=== PATIENT | female | born 2000 | race Caucasian/White ===

== ENCOUNTER 2020-06-15 04:39 | Inpatient (IN) | payer BC ==
[2020-06-15] MEDS ORDERED: methylPREDNISolone Sod Succ/PF 125 MG/2 ML VIAL ONE (05:08)
[2020-06-15] MEDS ORDERED: Magnesium 2 GM/50 ML BAG (IN WATER) ONE (05:08)
[2020-06-15] MEDS ORDERED: Metoclopramide HCl 10 MG/2 ML VIAL ONE (05:08)
[2020-06-15] MEDS ORDERED: HYDROmorphone 0.5 MG/0.5 ML SYRINGE ONE (05:08)
[2020-06-15] MEDS ORDERED: Ketorolac Tromethamine 30 MG/ML VIAL ONE (05:08)
[2020-06-15 05:56] LABS: Hemoglobin 12.7 g/dL (12.0-16.0); Mean Corpuscular HGB CONC 35.9 g/dL (32.0-36.0); Mean Corpuscular Hemoglobin 33.1 pg (25.0-35.0); Mean Corpuscular Volume 92.1 fL (78.0-98.0); Mean Platelet Volume 7.9 fL (7.4-10.4); Platelet Count 217 thou/uL (130-400); Red Blood Cell (RBC) Count 3.85 mill/uL (4.00-5.20); White Blood Cell (WBC) Count 4.7 thou/uL (4.8-10.8)
[2020-06-15 06:01] LABS: BHCG - Serum Negative (NEGATIVE); Pregs Control Background? CLEAR/WHITE (CLR/WHITE); Pregs Control Bar Appear? YES (CONTROL BAR)
[2020-06-15 06:04] LABS: ALT (SGPT) 77 U/L (8-55); AST (SGOT) 40 U/L (5-34); Albumin 3.9 g/dL (3.5-5.0); Alkaline Phosphatase 122 U/L (40-100); Anion Gap 12 mmol/L (10-20); BUN (Urea Nitrogen) 7 mg/dL (7.0-18.7); Bilirubin, Total 0.2 mg/dL (0.2-1.2); Calc. Creatinine Clearance 0 mL/min (70-130); Calcium 9.3 mg/dL (7.8-10.44); Carbon Dioxide 23 mmol/L (22-29); Chloride 106 mmol/L (98-107); Globulin 2.9 g/dL (2.4-3.5); Glucose 112 mg/dL (70-105); Potassium 3.4 mmol/L (3.5-5.1); Protein, Total 6.8 g/dL (6.0-8.3); Sodium 138 mmol/L (136-145)
[2020-06-15 06:16] LABS: Eosinophils 6 % (0-10); Lymphocytes 55 % (28-48); MDiff Complete? YES; Monocytes 11 % (0-4); Neutrophil 22 % (31-61); Reactive Lymphocytes 5 % (0-10)
--- NOTE | 2020-06-15 07:12 | PDOC.FPRHP ---
- History of Present Illness Chief Complaint: Headache History of Present Illness: Headache for 1 week, squeezing headache described as pounding that is worse with sitting up. When she sits up she also has tinnitus, blurry vision, and lightheadedness. Pain has gotten worse with LP. Pain has changed from posterior to all over pain. Never had a headache like this. Endorses bilateral leg weakness. - Allergies/Adverse Reactions Allergies Allergy/AdvReac Type Severity Reaction Status Date / Time amoxicillin [From Augmentin] Allergy Verified 06/15/20 07:03 clavulanic acid Allergy Verified 06/15/20 07:03 [From Augmentin] morphine Allergy Verified 06/15/20 07:03 - Home Medications Medication Instructions Recorded Confirmed Type Adalimumab [Humira(Cf) Pen] 40 mg SC 06/15/20 History Amitriptyline HCl 25 mg PO DAILY 06/15/20 06/15/20 History Cholestyramine (With Sugar) 4 g PO BID 06/15/20 06/15/20 History [Cholestyramine Packet] Fludrocortisone Acetate 0.2 mg PO BID 06/15/20 06/15/20 History Fremanezumab-Vfrm [Ajovy Syringe] 225 mg SC 06/15/20 History Hyoscyamine Sulfate [Levsin Elixir] 0.125 mg PO BID 06/15/20 06/15/20 History Pantoprazole [Protonix] 40 mg PO BID 06/15/20 06/15/20 History Potassium Chloride [K-Dur] 20 meq PO BID 06/15/20 06/15/20 History Pregabalin [Lyrica] 100 mg PO BID 06/15/20 06/15/20 History Propranolol [Inderal] 40 mg PO BID 06/15/20 06/15/20 History - History PMHx: Behcet's, Ehler's Danlos, Crohn's, GI motility disorder, neurogenic bladder, POTS, Mitral valve prolapse PSHx: 3 R knee, 2 L knee surgeries, Appendectomy, cholecystecomy @ [facility] FHx: none Social: denies X 3 - Review of Systems General: reports: fever/chills Eyes: reports: vision changes. denies: eye pain ENT: reports: nasal congestion, rhinorrhea Respiratory: reports: cough. denies: shortness of breath Cardiovascular: denies: chest pain, orthopnea Gastrointestinal: reports: abdominal pain. denies: nausea, vomiting, diarrhea Skin: denies: rashes, lesions Neurological: reports: weakness. denies: numbness, syncope - Vital signs BP: 130/85 HR: 68 RR: 18 Tmax: 97.9 Pox: 98% on RA Wt: 52 kg - Physical Exam Constitutional: NAD, awake, alert and oriented, well developed HEENT: normocephalic and atraumatic, EOMI, conjunctiva clear, no scleral icterus, grossly normal vision, TM's clear and intact, grossly normal hearing, MMM, oropharynx clear, good dention Neck: supple, FROM, trachea midline, no JVD Chest: no-tender to palpation, no lesions Heart: RRR, normal S1/S2 -Heart: mid-systolic click heard at L 5th intercostal space Lungs: CTAB, no respiratory distress, good air movement, no rales/rhonchi, no wheezing, no retractions Abdomen: soft, bowel sounds present, no masses/distention -Abdomen: Mildly tender diffusely Musculoskeletal: normal structure, normal tone, ROM grossly normal Neurological: no focal deficit, CN II-XII intact -Neurological: Lower legs w/ decreased sensation 2/2 previous surgeries, RLE 5/5 strength, LLE 4/5 strength Skin: no rash/lesions Heme/Lymphatic: no unusual bruising or bleeding, no purpura Psychiatric: normal mood and affect, good judgment and insight, intact recent and remote memory FMR H&P: Results - Labs Result Diagrams: 06/15/20 05:25 06/15/20 05:25 Lab results: WBC 4.7 thou/uL (4.8-10.8) L 06/15/20 05:25 Hgb 12.7 g/dL (12.0-16.0) 06/15/20 05:25 Hct 35.4 % (36.0-47.0) L 06/15/20 05:25 MCV 92.1 fL (78.0-98.0) 06/15/20 05:25 Plt Count 217 thou/uL (130-400) 06/15/20 05:25 Sodium 138 mmol/L (136-145) 06/15/20 05:25 Potassium 3.4 mmol/L (3.5-5.1) L 06/15/20 05:25 Chloride 106 mmol/L (98-107) 06/15/20 05:25 Carbon Dioxide 23 mmol/L (22-29) 06/15/20 05:25 BUN 7 mg/dL (7.0-18.7) 06/15/20 05:25 Creatinine 0.61 mg/dL (0.6-1.1) 06/15/20 05:25 Glucose 112 mg/dL (70-105) H 06/15/20 05:25 Calcium 9.3 mg/dL (7.8-10.44) 06/15/20 05:25 Total Bilirubin 0.2 mg/dL (0.2-1.2) 06/15/20 05:25 AST 40 U/L (5-34) H 06/15/20 05:25 ALT 77 U/L (8-55) H 06/15/20 05:25 Alkaline Phosphatase 122 U/L (40-100) H 06/15/20 05:25 Serum Total Protein 6.8 g/dL (6.0-8.3) 06/15/20 05:25 Albumin 3.9 g/dL (3.5-5.0) 06/15/20 05:25 - Radiology Interpretation CT scan - head Status: image reviewed by me, report reviewed by me Additional comment: No acute hemorrhage, no acute abnormality, will need f/u imaging FMR H&P: A/P - Plan Intractable Headache - ddx includes spinal headache (LP 06/13) vs migraine vs tension vs aneurysm vs parathyroid hyperplasia/adenoma - CTH is unremarkable for acute processes but will need further imaging - MARTINI protocol completed steps 1-4 - Start 1L LR bolus - IV Reglan and Benadryl Q1h UTI - GBS grew on Urine culture from 06/12 - Macrobid X 7 d Hypokalemia - Replete, check Mg Transaminitis - Patient reports that this normally occurs with flares - Trend Crohn's disease - Home medications 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, home medications POTS disease - MD aware, monitor VS Dysautonomia - Could be playing role in headaches - Continue to monitor Migraine headaches - On prophylaxis, this headache feels different than typical migraines Hx of headaches - Tension MARTINI with history of occipital nerve injections Elevated BP - Continue to monitor DVT PPX: Lovenox 30 mg QD-patient with hx of surgery in 06/29, decreased mobility with MARTINI, and Autoimmune disease affecting vessels GI ppx: home pantoprazole Diet: regular PCP: CC OOT Code: full Dispo: Admit med obs, expected LOS < 48 hrs FMR H&P: Upper Level - Plan Date/Time: 06/15/20 0709 I, [Leeann Christie], have evaluated this patient and agree with findings/plan as outlined by merchandising intern resident. Pertinent changes/additions are listed here. 19 yo F with Shanique Danlos, Behcets & Crohns & POTS syndrome & chronic migraines here for worsening of migraine. Was seen in the ER two days ago for headache where she underwent LP and medication with mild improvement of MARTINI. Over the past day her headache worsened and so she came back to the ER. Was given toradol, dilaudid, MgS, solumedrol, reglan & valproic acid with no relief so is admitted for intractable headache. Of note, she has been followed by [facility] with a diagnosis of a 10mm suprasellar seen on MRI in Jun 2019. She has a history of migraines on which she is on propranolol & amitriptyline for but this one feels different and worse. MARTINI is worse with sitting up, improved with laying down. Associated nausea but no vision changes. On exam, CN II-XII grossly intact with 3/5 motor strength in lower extremities which patient reports is her baseline. Reports mildly decreased left sensation in LUE but 5/5 strength. Non ill appearing and in mild distress from headache. CT head showed possible aneurysm and suprasellar mass. A/P: # Intractable Headache -2/2 aneurysm vs. suprasellar mass vs. post spinal headache vs. migraine exacerbation -Will get f/u MRI to evaluate for intracranial pathology that could explain persistent headache. Concern for aneurysm or enlarge of suprasellar mass. No significant FND on exam. If imaging neg, will consult anesthesia as headache seems more related to LP procedure, patient may need blood patch. Fluids, headache medications in the meantime. Low suspicion for meningitis, LP NGTD, will continue to follow. #UTI- on last ER hospitalization, will treat with abx #Hypokalemia-replace, check Mg #Transaminitis- likely from autoimmune disease. Trend. #Dysautonomia-home meds #Crohn's-home meds #Behcet's-home meds Please see merchandising intern note for rest of details Dvt ppx: lovenox 30 Gi ppx: home PPI Code: Full PCP: [facility] LOS: <[address] Delacruz Addendum - Attending - Attending Attestation Date/Time: 06/15/20 1720 I personally evaluated the patient and discussed the management with Dr. Garcia I agree with the History, Examination, Assessment and Plan documented above with any addition or exceptions noted below - 19 yo female with h/o Behcet's, Crohn's, Ehler Danlos, pituitary adenoma, and POTS syndrome presents c/o MARTINI x 2 days. Initially seen in ER in 06/11 with c/o fever and body aches. Evaluated and d/c'd home with abx for UTI. Returned on 06/13 with additional c/o MARTINI, bitemporal. LP performed which was unremarkable. Blood and CSF cultures negative. D/c'd home but returned today with persistent MARTINI now global that worsens with sitting/standing and improves when supine. Denies N/V. PMH/PSH/Meds/SH reviewed and agree with resident;s documentation. Afebrile VSS. Exam repeated by me and agree with resident's findings. 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 Continue IVF an dwill have anesthesia evaluate patient for possible spinal component.
[2020-06-15] MEDS ORDERED: VALPROATE SODIUM IVPB SCH (07:15)
[2020-06-15] MEDS ORDERED: SODIUM CHLORIDE 0.9% IVPB SCH (07:15)
--- NOTE | 2020-06-15 07:18 | CT ---
PRELIMINARY REPORT/[facility]/EMERGENCY AFTER HOURS PROCEDURE EXAM: CT Head Without Intravenous Contrast. CLINICAL HISTORY: Headaches, recent LP TECHNIQUE: Axial computed tomography images of the head/brain without intravenous contrast. COMPARISON: None provided. FINDINGS: BRAIN: No intracranial hemorrhage. Within the suprasellar region is rounded hyperdensity measuring 8 mm. Dif ferential should include mass versus aneurysm. Followup unenhanced and enhanced MRI is advised. VENTRICLES: No hydrocephalus. ORBITS: The orbits are unremarkable. SINUSES AND MASTOIDS: The paranasal sinuses and mastoid air cells are clear. SOFT TISSUES: No significant facial or scalp soft tissue swelling evident. No radiopaque foreign body is seen. BONES: No acute skull fracture. IMPRESSION: 8 mm rounded hyperdensity within suprasellar region. Followup unenhanced and enhanced MRI on a noneme rgent basis is advised. ELECTRONICALLY SIGNED BY: Leeanna Monge MD Jun 15, 2020 6:14:35 AM SENIOR PROCUREMENT SPECIALIST This report is intended for review by the ordering physician only, in accordance of law. If you recei ve this report in error, please call [facility] at [phone]. FINAL REPORT Final report by Dr. Roe Emergency after-hours study CT BRAIN NONCONTRAST: DATE: 06/15/2020 5:39 AM HISTORY: 19-year-old female with headache FINDINGS: There is no evidence of acute intra-axial or extra-axial hemorrhage. There is no midline shift or any other mass effect. There is no extra-axial fluid collection. There is no evidence of obstructive hydrocephalus. Calvarium is intact. There is an approximately 10 x 9 mm round hyperdense mass in the suprasellar cistern. Visualized upper portions of frontal, ethmoid, and sphenoid sinuses, and bilateral tympanomastoid cavities, are grossly clear. Agree with preliminary report by [facility]. IMPRESSION: 1) No acute intracranial findings. 2) 10 mm suprasellar mass. Differential diagnosis is pituitary macroadenoma versus craniopharyngioma. Aneurysm is less likely but possible. Recommend further evaluation with MRI of the brain and sella with and without contrast. Transcribed Date/Time: 06/15/2020 7:32 AM
[2020-06-15] MEDS ORDERED: Calcium Carbonate 500 MG ChewTAB PO PRN (07:52)
[2020-06-15] MEDS ORDERED: Acetaminophen 325 MG TAB PO PRN (07:52)
[2020-06-15] MEDS ORDERED: Acetaminophen 650 MG Suppository PR PRN (07:52)
[2020-06-15] MEDS ORDERED: Ondansetron ODT 4 MG TAB PO PRN (07:52)
[2020-06-15] MEDS ORDERED: Ondansetron PF 4 MG/2 ML Vial IVP PRN (07:52)
[2020-06-15] MEDS ORDERED: Lactated Ringer's 1,000 ML IV SCH (08:15)
[2020-06-15] MEDS ORDERED: Enoxaparin Sodium 40 MG/0.4 ML SYRINGE SC SCH (09:00)
[2020-06-15] MEDS: Enoxaparin Sodium 30 MG/0.3 ML SYRINGE SC SCH (09:06)
[2020-06-15 09:29] VITALS: BMI 16.9
[2020-06-15] MEDS ORDERED: Potassium Chloride 20 MEQ TAB PO SCH (09:45)
[2020-06-15] MEDS ORDERED: diphenhydrAMINE 50 MG/ML VIAL IVP SCH (10:15)
[2020-06-15] MEDS: diphenhydrAMINE 50 MG/ML VIAL IVP SCH ×3 (11:49→13:13)
[2020-06-15] MEDS: Metoclopramide HCl 10 MG/2 ML VIAL IVP SCH ×3 (11:50→13:13)
--- NOTE | 2020-06-15 13:49 | MRI ---
MRI OF BRAIN WITH AND WITHOUT CONTRAST: 06/15/20 INDICATIONS: Follow-up suprasellar mass seen on CT of 06/15/20. Correlation is made to that study. FINDINGS: There is a mass involving the sella turcica with suprasellar extension. This mass is isointense on T1 and T2 images. It exhibits diffuse enhancement on postcontrast images. In the suprasellar region it abuts the optic chiasm. On sagittal images, it measures 1.1 cm craniocaudal x 1.1 cm AP dimension. In the coronal plane, it measures approximately 1.2 cm width. No involvement of the cavernous sinus is seen. No other abnormal enhancement identified. Ventricles have normal size and position. There is no evide nce of white matter abnormality. There is no evidence of restricted diffusion. The intracranial inter nal carotid arteries and cerebral arteries demonstrate expected flow voids. Mild mucosal edema in the floor of the maxillary sinuses. There is also mild mucosal edema in the ethmoid air cells. Mastoids appear clear. IMPRESSION: Sella turcica mass with suprasellar extension which abuts the optic chiasm. Measurements are given ab ove. This mass is homogeneous with isointensity on noncontrast images and exhibits diffuse enhanceme nt. 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 POS: AH
[2020-06-15] MEDS ORDERED: Magnevist 469MG/ML 20 ML VIAL ONE (14:19)
[2020-06-15] MEDS ORDERED: FREMANEZUMAB VFRM 225 MG/1.5 ML SC SCH (20:15)
[2020-06-15] MEDS ORDERED: ADALIMUMAB 40 MG/0.4 ML SC SCH (20:15)
[2020-06-15] MEDS ORDERED: Fludrocortisone Acetate 0.1 MG TAB PO SCH (21:00)
[2020-06-15] MEDS: Nitrofurantoin Monohyd/M-Cryst 100 MG CAP PO SCH (22:00)
[2020-06-15] MEDS ORDERED: Cholestyramine/Aspartame 4 gm Packet PO SCH (22:00)
[2020-06-15] MEDS: Potassium Chloride 20 MEQ TAB PO SCH (22:00)
[2020-06-15] MEDS: Pregabalin 50 MG CAP PO SCH (22:00)
[2020-06-15] MEDS: Propranolol 40 MG TAB PO SCH (22:00)
[2020-06-15] MEDS: Ketorolac Tromethamine 30 MG/ML VIAL IVP PRN (22:21)
[2020-06-16] MEDS: Ketorolac Tromethamine 30 MG/ML VIAL IVP PRN ×3 (05:32→18:12)
[2020-06-16 05:47] LABS: #Eosinphils 0.1 thou/uL (0.0-0.7); #Lymphocytes 3.4 thou/uL (1.20-3.40); #Monocytes 0.5 thou/uL (0.11-0.59); #Neutrophils 2.9 thou/uL (1.40-6.50); %Basophils 0.6 % (0.0-1.0); %Eosinophils 1.6 % (0.0-10.0); %Lymphocytes 49.9 % (28.0-48.0); %Monocytes 6.6 % (0.0-4.0); %Neutrophils 41.3 % (31.0-61.0); Hemoglobin 11.7 g/dL (12.0-16.0); Mean Corpuscular HGB CONC 35.3 g/dL (32.0-36.0); Mean Corpuscular Hemoglobin 32.6 pg (25.0-35.0); Mean Corpuscular Volume 92.2 fL (78.0-98.0); Mean Platelet Volume 8.3 fL (7.4-10.4); Platelet Count 217 thou/uL (130-400); Red Blood Cell (RBC) Count 3.58 mill/uL (4.00-5.20); White Blood Cell (WBC) Count 6.9 thou/uL (4.8-10.8)
[2020-06-16 06:13] LABS: ALT (SGPT) 53 U/L (8-55); AST (SGOT) 18 U/L (5-34); Albumin 3.7 g/dL (3.5-5.0); Alkaline Phosphatase 104 U/L (40-100); Anion Gap 11 mmol/L (10-20); BUN (Urea Nitrogen) 14 mg/dL (7.0-18.7); Bilirubin, Total 0.2 mg/dL (0.2-1.2); Calc. Creatinine Clearance 115 mL/min (70-130); Calcium 8.8 mg/dL (7.8-10.44); Carbon Dioxide 23 mmol/L (22-29); Chloride 109 mmol/L (98-107); Globulin 2.6 g/dL (2.4-3.5); Glucose 91 mg/dL (70-105); Potassium 3.6 mmol/L (3.5-5.1); Protein, Total 6.3 g/dL (6.0-8.3); Sodium 139 mmol/L (136-145)
--- NOTE | 2020-06-16 06:33 | PDOC.FM ---
- Subjective Subjective: Patient with worsening MARTINI this AM. Reports blood patch overnight worked for a few hours then pain returns. Pain is now worse than before the blood patch. The pain is still position dependent, squeezing in nature, and throughout her head. She reports this is not like her typical migraines. - Objective Vital Signs & Weight: Vital Signs (12 hours) Temp Pulse Resp BP Pulse Ox 06/16/20 03:00 98.4 F 80 18 116/63 98 06/15/20 23:00 98.4 F 80 18 121/81 100 06/15/20 19:53 97.9 F 95 18 116/74 100 Weight Weight 52 kg I&O: 06/14/20 06/15/20 06/16/20 06:59 06:59 06:59 Intake Total 1300 Balance 1300 Result Diagrams: 06/16/20 05:11 06/16/20 05:11 Phys Exam - Physical Examination Constitutional: NAD Lying in bed Respiratory: no wheezing, no rales, no rhonchi Cardiovascular: RRR, no significant murmur, no rub Neurological: non-focal, moves all 4 limbs Exam unchanged from yesterday Dx/Plan - Plan Plan: Intractable Headache - ddx includes spinal headache (LP 06/13) vs migraine vs tension vs aneurysm vs parathyroid hyperplasia/adenoma - CTH is unremarkable for acute processes but will need further imaging - MARTINI protocol completed steps 1-4 - Blood patch completed 06/15 - one time dilaudid dose, flexeril dose - Consider DHT for status migranosus - Consider neuro consult 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 POTS disease - MD aware, monitor VS Dysautonomia - Could be playing role in headaches - Continue to monitor Migraine headaches - On prophylaxis, this headache feels different than typical migraines Hx of headaches - Tension MARTINI with history of occipital nerve injections Elevated BP - Continue to monitor Hypokalemia - Resolved DVT PPX: Lovenox 30 mg QD-patient with hx of surgery in 06/29, decreased mobility with MARTINI, and Autoimmune disease affecting vessels GI ppx: home pantoprazole Diet: regular PCP: CC OOT Code: full Dispo: Admit med obs, expected LOS < 48 hrs Addendum - Attending - Attending Attestation Date/Time: 06/16/201926 I personally evaluated the patient and discussed the management with Dr. Garcia I agree with the History, Examination, Assessment and Plan documented above with any addition or exceptions noted below - Patient reports MARTINI returned and is severe. Afebrile VSS. A/P: 1) Intractable MARTINI- had relief for few hours after blood patch. will discuss with neurology.
[2020-06-16] MEDS ORDERED: diphenhydrAMINE 50 MG CAP PO PRN (06:55)
[2020-06-16] MEDS: Pregabalin 50 MG CAP PO SCH ×2 (08:24→21:33)
[2020-06-16] MEDS: Nitrofurantoin Monohyd/M-Cryst 100 MG CAP PO SCH ×2 (08:24→21:34)
[2020-06-16] MEDS: Potassium Chloride 20 MEQ TAB PO SCH ×2 (08:25→21:33)
[2020-06-16] MEDS: Propranolol 40 MG TAB PO SCH ×2 (08:26→21:32)
[2020-06-16] MEDS: Enoxaparin Sodium 30 MG/0.3 ML SYRINGE SC SCH (08:30)
[2020-06-16] MEDS ORDERED: HYDROmorphone 0.5 MG/0.5 ML SYRINGE SLOW IVP SCH (09:00)
[2020-06-16] MEDS ORDERED: Amitriptyline HCl 25 MG TAB PO SCH (09:00)
[2020-06-16] MEDS ORDERED: Cyclobenzaprine 10 MG TAB PO SCH (10:00)
[2020-06-16] MEDS: Lactated Ringer's 1,000 ML IV SCH ×2 (11:43→21:35)
[2020-06-16] MEDS ORDERED: Caffeine Citrated 60 MG/3 ML (ORALLY) PO SCH (16:15)
[2020-06-16] MEDS ORDERED: Sodium Chloride 0.9% 500 ML IV SCH (16:15)
[2020-06-16] MEDS: Fludrocortisone Acetate 0.1 MG TAB PO SCH ×3 (17:13→21:32)
[2020-06-16] MEDS ORDERED: Fioricet 325/50/40 mg Tablet PO SCH (21:00)
[2020-06-16] MEDS: Amitriptyline HCl 25 MG TAB PO SCH (21:35)
[2020-06-17] MEDS: Lactated Ringer's 1,000 ML IV SCH ×3 (03:20→23:06)
[2020-06-17] MEDS: Ketorolac Tromethamine 30 MG/ML VIAL IVP PRN ×4 (03:20→23:04)
[2020-06-17 03:58] LABS: ALT (SGPT) 74 U/L (8-55); AST (SGOT) 33 U/L (5-34); Albumin 3.8 g/dL (3.5-5.0); Alkaline Phosphatase 125 U/L (40-100); Anion Gap 12 mmol/L (10-20); BUN (Urea Nitrogen) 8 mg/dL (7.0-18.7); Bilirubin, Total 0.2 mg/dL (0.2-1.2); Calc. Creatinine Clearance 108 mL/min (70-130); Calcium 9.2 mg/dL (7.8-10.44); Carbon Dioxide 25 mmol/L (22-29); Chloride 104 mmol/L (98-107); Globulin 2.8 g/dL (2.4-3.5); Glucose 88 mg/dL (70-105); Potassium 3.7 mmol/L (3.5-5.1); Protein, Total 6.6 g/dL (6.0-8.3); Sodium 137 mmol/L (136-145)
--- NOTE | 2020-06-17 04:19 | CON ---
DATE OF CONSULTATION: 06/16/2020 CONSULTING PHYSICIAN: Hospitalist Service. IMPRESSION: Persistent spinal leak headache. PLAN: Recall Anesthesia to repeat a blood patch. HISTORY OF PRESENT ILLNESS: Gabbi is a 19-year-old young woman, who came into the emergency room with fever and low-grade headache about four days ago. She had a lumbar puncture done. Following the LP, she developed a new type of headache that was postural. She was admitted and given medications and fluids. She failed to improve. She had a blood patch yesterday. She reports that the headache has transiently gone for a few hours. The pain started recurring despite the lack of activity. The pain is markedly worse when she sits up. There was associated tinnitus and muffled hearing, neck pain and shoulder pain when she sits up. There is some slight nausea. She had an MRI of the brain done with some pituitary abnormalities noted, but nothing otherwise significant. She is not having any fever. She has a history of migraine, but reports this is totally different than her usual migraine headaches. PAST HISTORY: Migraines. ALLERGIES: AMOXICILLIN, MORPHINE, CLAVULANIC ACID. SOCIAL HISTORY: No tobacco or alcohol. FAMILY HISTORY: Noncontributory. MEDICATION LIST: Reviewed. REVIEW OF SYSTEMS: Ten-system review of systems is otherwise negative. PHYSICAL EXAMINATION: GENERAL: She is a healthy-appearing young woman and in no overt distress. VITAL SIGNS: Have been stable. She is afebrile. HEENT: Pupils are equal and reactive. Conjunctivae are clear. NECK: Supple. No lymphadenopathy. SKIN: Clear. ABDOMEN: Soft and nontender. NEUROLOGIC: She is alert and appropriate. Her speech is fluent and clear. She has no focal deficits or abnormal movements. SUMMARY: Unfortunate young woman with a persistent postural headache with peripheral symptoms consistent with low-pressure headache. There is not much I can offer her. I would recall Anesthesia to repeat blood patch. Job ID: [id number]
[2020-06-17 04:35] LABS: Eosinophils 3 % (0-10); Hemoglobin 12.4 g/dL (12.0-16.0); Lymphocytes 68 % (28-48); MDiff Complete? YES; Mean Corpuscular HGB CONC 35.6 g/dL (32.0-36.0); Mean Corpuscular Hemoglobin 33.1 pg (25.0-35.0); Mean Corpuscular Volume 93.1 fL (78.0-98.0); Mean Platelet Volume 7.6 fL (7.4-10.4); Monocytes 4 % (0-4); Neutrophil 24 % (31-61); Platelet Count 235 thou/uL (130-400); Reactive Lymphocytes 1 % (0-10); Red Blood Cell (RBC) Count 3.74 mill/uL (4.00-5.20); White Blood Cell (WBC) Count 4.7 thou/uL (4.8-10.8)
[2020-06-17] MEDS ORDERED: Fioricet 325/50/40 mg Tablet PO SCH ×3 (05:00→17:00)
[2020-06-17] MEDS: Pregabalin 50 MG CAP PO SCH ×2 (08:12→20:15)
[2020-06-17] MEDS: Propranolol 40 MG TAB PO SCH ×2 (08:13→20:15)
[2020-06-17] MEDS: Potassium Chloride 20 MEQ TAB PO SCH ×2 (08:13→20:14)
[2020-06-17] MEDS: Nitrofurantoin Monohyd/M-Cryst 100 MG CAP PO SCH ×2 (08:13→20:14)
[2020-06-17] MEDS: Enoxaparin Sodium 30 MG/0.3 ML SYRINGE SC SCH (08:14)
--- NOTE | 2020-06-17 08:20 | PDOC.FM ---
- Subjective Subjective: Patient reports persistent MARTINI, 4/10 pain lying down, worse with position changes, Fioricet makes her tired but does not seem to affect pain. - Objective Vital Signs & Weight: Vital Signs (12 hours) Temp Pulse Resp BP BP Pulse Ox 06/17/20 08:17 97.8 F 66 16 104/67 98 06/17/20 03:00 97.9 F 72 18 124/81 97 06/16/20 23:00 98.5 F 63 18 116/74 95 Weight Weight 52 kg I&O: 06/16/20 06/17/20 06/18/20 06:59 06:59 06:59 Intake Total 1600 5371.25 Balance 1600 5371.25 Result Diagrams: 06/20/20 05:50 06/20/20 05:50 Phys Exam - Physical Examination Constitutional: NAD Respiratory: no wheezing, no rales, no rhonchi Cardiovascular: RRR, no rub mid systolic click Gastrointestinal: soft, no distention, positive bowel sounds Dx/Plan - Plan Plan: Intractable Headache - ddx includes spinal headache (LP 06/13) vs migraine vs tension vs aneurysm vs parathyroid hyperplasia/adenoma - CTH is unremarkable for acute processes, MRI shows stable pituitary adenoma - MARTINI protocol completed steps 1-4 - Blood patch completed 06/15 - Consider DHT for status migranosus - Neuro consulted - Anesthesia consulted - Does not want to repeat blood patch at this time, last option is ketamine infusion - Fioricet X24 hrs only 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 POTS disease - MD aware, monitor VS Dysautonomia - Could be playing role in headaches - Continue to monitor Migraine headaches - On prophylaxis, this headache feels different than typical migraines Hx of headaches - Tension MARTINI with history of occipital nerve injections Elevated BP - Continue to monitor Hypokalemia - Resolved DVT PPX: Lovenox 30 mg QD-patient with hx of surgery in 06/29, decreased mobility with MARTINI, and Autoimmune disease affecting vessels GI ppx: home pantoprazole Diet: regular PCP: [facility] OOT Code: full Dispo: Admit med obs, expected LOS < 48 hrs Addendum - Attending - Attending Attestation Date/Time: 06/24/202106 I personally evaluated the patient and discussed the management with Dr. Garcia on 06/17/20 I agree with the History, Examination, Assessment and Plan documented above with any addition or exceptions noted below - Patient still with MARTINI. Will re-discuss with anesthesia for repeat blood patch versus other treatment.
[2020-06-17] MEDS: Fludrocortisone Acetate 0.1 MG TAB PO SCH ×2 (10:27→21:18)
[2020-06-17] MEDS: Acetaminophen 500 MG TAB PO SCH ×2 (14:58→20:14)
[2020-06-17] MEDS ORDERED: Naloxone HCl 0.4 mg/ml Vial IV PRN (18:57)
[2020-06-17] MEDS ORDERED: HYDROmorphone 0.5 MG/0.5 ML SYRINGE SLOW IVP SCH ×2 (19:00)
[2020-06-17] MEDS: Amitriptyline HCl 25 MG TAB PO SCH (20:15)
[2020-06-17] MEDS ORDERED: HYDROmorphone 2 MG TAB PO PRN (22:37)
[2020-06-17] MEDS ORDERED: Promethazine HCl 25 MG in Sodium Chloride 0.9% 50 ML IVPB PRN (23:02)
[2020-06-18] MEDS: Fentanyl 100 MCG/2 ML VIAL SLOW IVP PRN ×3 (00:42→12:20)
[2020-06-18] MEDS: methylPREDNISolone Sod Succ 40 MG VIAL IVP SCH ×2 (00:44→09:28)
[2020-06-18] MEDS ORDERED: Magnesium 2 GM/50 ML 2 GM in Premix Bag 1 BAG IVPB SCH (01:00)
[2020-06-18] MEDS: Acetaminophen 325 MG TAB PO SCH ×3 (03:17→17:11)
[2020-06-18 06:46] LABS: #Lymphocytes 1.2 thou/uL (1.20-3.40); #Monocytes 0.1 thou/uL (0.11-0.59); #Neutrophils 3.6 thou/uL (1.40-6.50); %Basophils 0.7 % (0.0-1.0); %Eosinophils 0.6 % (0.0-10.0); %Lymphocytes 23.9 % (28.0-48.0); %Monocytes 2.4 % (0.0-4.0); %Neutrophils 72.4 % (31.0-61.0); Hemoglobin 12.6 g/dL (12.0-16.0); Mean Corpuscular HGB CONC 35.2 g/dL (32.0-36.0); Mean Corpuscular Hemoglobin 32.4 pg (25.0-35.0); Mean Platelet Volume 7.7 fL (7.4-10.4); Platelet Count 272 thou/uL (130-400)
[2020-06-18 06:58] LABS: ALT (SGPT) 55 U/L (8-55); AST (SGOT) 25 U/L (5-34); Alkaline Phosphatase 117 U/L (40-100); Anion Gap 11 mmol/L (10-20); BUN (Urea Nitrogen) 9 mg/dL (7.0-18.7); Bilirubin, Total 0.3 mg/dL (0.2-1.2); Calc. Creatinine Clearance 107 mL/min (70-130); Calcium 9.3 mg/dL (7.8-10.44); Carbon Dioxide 27 mmol/L (22-29); Chloride 105 mmol/L (98-107); Globulin 2.8 g/dL (2.4-3.5); Glucose 111 mg/dL (70-105); Potassium 3.8 mmol/L (3.5-5.1); Protein, Total 6.8 g/dL (6.0-8.3); Sodium 139 mmol/L (136-145)
--- NOTE | 2020-06-18 08:53 | PDOC.FM ---
- Subjective Subjective: Patient reports persistent MARTINI with nausea. Reports that she denies blood patch yesterday because from her understanding, it would only be a temporary solution. This morning, she reports she is interested in blood patch even if it were a temporary solution. - Objective Vital Signs & Weight: Vital Signs (12 hours) Temp Pulse Resp BP BP Pulse Ox 06/18/20 07:41 97.7 F 72 16 115/61 96 06/18/20 04:45 97.4 F L 81 16 105/62 97 06/18/20 00:08 80 18 115/75 100 06/17/20 23:28 98.2 F 120 H 22 H 135/96 H 99 Weight Admit Weight 52 kg Weight 52 kg I&O: 06/17/20 06/18/20 06/19/20 06:59 06:59 06:59 Intake Total 5371.25 4432 Balance 5371.25 4432 Result Diagrams: 06/18/20 06:20 06/18/20 06:20 Phys Exam - Physical Examination Constitutional: NAD Respiratory: no wheezing, clear to auscultation bilateral Cardiovascular: RRR, no rub midsystolic click Neurological: non-focal Unchanged from prior exam Dx/Plan - Plan Plan: Intractable Headache - ddx includes spinal headache (LP 06/13) vs migraine vs tension vs aneurysm vs parathyroid hyperplasia/adenoma - CTH is unremarkable for acute processes, MRI shows stable pituitary adenoma - MARTINI protocol completed steps 1-4 - Blood patch completed 06/15 - Neuro consulted - Anesthesia consulted - Patient denied blood patch yesterday, discussed today, open to idea even for limited relief - Fioricet X24 hrs only, completed 06/18 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 POTS disease - MD aware, monitor VS Dysautonomia - Could be playing role in headaches - Continue to monitor Migraine headaches - On prophylaxis, this headache feels different than typical migraines Hx of headaches - Tension MARTINI with history of occipital nerve injections Elevated BP - Continue to monitor Hypokalemia - Resolved DVT PPX: Lovenox 30 mg QD-patient with hx of surgery in 06/29, decreased mobility with MARTINI, and Autoimmune disease affecting vessels GI ppx: home pantoprazole Diet: regular PCP: [facility] OOT Code: full Dispo: Admit med obs, expected LOS < 48 hrs Addendum - Attending - Attending Attestation Date/Time: 06/18/20 1255 I personally evaluated the patient and discussed the management with Dr. Garcia. I agree with the History, Examination, Assessment and Plan documented above with any addition or exceptions noted below.
[2020-06-18] MEDS: Propranolol 40 MG TAB PO SCH ×2 (09:24→20:52)
[2020-06-18] MEDS: Pregabalin 50 MG CAP PO SCH ×2 (09:24→20:49)
[2020-06-18] MEDS: Potassium Chloride 20 MEQ TAB PO SCH ×2 (09:25→20:52)
[2020-06-18] MEDS: Fludrocortisone Acetate 0.1 MG TAB PO SCH ×2 (09:25→20:54)
[2020-06-18] MEDS: Nitrofurantoin Monohyd/M-Cryst 100 MG CAP PO SCH ×2 (09:25→20:54)
[2020-06-18] MEDS: Enoxaparin Sodium 40 MG/0.4 ML SYRINGE SC SCH (09:26)
[2020-06-18] MEDS: Lactated Ringer's 1,000 ML IV SCH (12:21)
[2020-06-18] MEDS: Dextrose 5%-Lactated Ringers 1,000 ML IV SCH ×2 (16:03→23:15)
[2020-06-18] MEDS: Amitriptyline HCl 25 MG TAB PO SCH (20:52)
[2020-06-18] MEDS ORDERED: Ibuprofen 800 MG TAB PO SCH (22:00)
[2020-06-18] MEDS ORDERED: Ketorolac Tromethamine 30 MG/ML VIAL IVP SCH ×2 (23:45→23:59)
[2020-06-18] MEDS ORDERED: Lactated Ringer's 1,000 ML IV SCH (23:59)
[2020-06-19] MEDS ORDERED: Magnesium 2 GM/50 ML 2 GM in Premix Bag 1 BAG IVPB SCH (00:15)
[2020-06-19] MEDS ORDERED: methylPREDNISolone Sod Succ 40 MG VIAL IVP SCH (00:15)
[2020-06-19] MEDS: Acetaminophen 325 MG TAB PO SCH ×3 (02:05→17:52)
[2020-06-19] MEDS ORDERED: Ketorolac Tromethamine 10 MG TAB PO SCH (03:15)
[2020-06-19] MEDS: Dextrose 5%-Lactated Ringers 1,000 ML IV SCH ×3 (03:16→14:35)
[2020-06-19] MEDS ORDERED: Fioricet 325/50/40 mg Tablet PO SCH (04:30)
[2020-06-19 06:06] LABS: #Basophils 0.1 thou/uL (0.0-0.2); #Lymphocytes 1.6 thou/uL (1.20-3.40); #Monocytes 0.2 thou/uL (0.11-0.59); #Neutrophils 5.7 thou/uL (1.40-6.50); %Basophils 0.7 % (0.0-1.0); %Eosinophils 0.2 % (0.0-10.0); %Lymphocytes 21.5 % (28.0-48.0); %Monocytes 2.1 % (0.0-4.0); %Neutrophils 75.4 % (31.0-61.0); Hemoglobin 11.6 g/dL (12.0-16.0); Mean Corpuscular HGB CONC 35.2 g/dL (32.0-36.0); Mean Corpuscular Volume 93.9 fL (78.0-98.0); Mean Platelet Volume 7.7 fL (7.4-10.4); Platelet Count 252 thou/uL (130-400); Red Blood Cell (RBC) Count 3.52 mill/uL (4.00-5.20); White Blood Cell (WBC) Count 7.5 thou/uL (4.8-10.8)
[2020-06-19 06:33] LABS: ALT (SGPT) 45 U/L (8-55); AST (SGOT) 24 U/L (5-34); Albumin 3.6 g/dL (3.5-5.0); Alkaline Phosphatase 101 U/L (40-100); Anion Gap 12 mmol/L (10-20); BUN (Urea Nitrogen) 7 mg/dL (7.0-18.7); Bilirubin, Total Less than 0.2 mg/dL (0.2-1.2); Calc. Creatinine Clearance 113 mL/min (70-130); Calcium 8.1 mg/dL (7.8-10.44); Carbon Dioxide 24 mmol/L (22-29); Chloride 108 mmol/L (98-107); Globulin 2.4 g/dL (2.4-3.5); Glucose 161 mg/dL (70-105); Potassium 3.5 mmol/L (3.5-5.1); Sodium 140 mmol/L (136-145)
--- NOTE | 2020-06-19 08:03 | PDOC.FM ---
- Subjective Subjective: Patient had increasing headaches overnight. This morning reports that they are back to 4-5/10. She reports double vision and hearing changes that have been worsening-they used ot only occur when sitting but now happen at rest. Patient received Mg, Solumedrol, fioricet overnight. - Objective Vital Signs & Weight: Vital Signs (12 hours) Temp Pulse Resp BP Pulse Ox 06/19/20 07:00 98.1 F 78 14 105/58 L 97 06/19/20 04:00 98.4 F 86 20 116/71 97 06/19/20 00:00 98.5 F 89 20 106/56 L 98 Weight Admit Weight 52 kg Weight 52 kg I&O: 06/18/20 06/19/20 06/20/20 06:59 06:59 06:59 Intake Total 4432 2222 Output Total 1 Balance 4432 2221 Result Diagrams: 06/19/20 05:33 06/19/20 05:33 Phys Exam - Physical Examination Constitutional: NAD Respiratory: no wheezing, no rales, no rhonchi, clear to auscultation bilateral Cardiovascular: no significant murmur, no rub systolic click Neurological: moves all 4 limbs perrl UE strength 5/5, LE strength 4/5 bilaterally Dx/Plan - Plan Plan: Intractable Headache - ddx includes spinal headache (LP 06/13) vs migraine vs tension vs aneurysm vs parathyroid hyperplasia/adenoma - CTH is unremarkable for acute processes, MRI shows stable pituitary adenoma - MARTINI protocol completed steps 1-4 - Blood patch completed 06/15 - Neuro consulted - Anesthesia consulted - Patient denied blood patch yesterday after rediscussion - Fioricet X24 hrs only, completed 06/18 - will reach out to neurology today. 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 POTS disease - MD aware, monitor VS Dysautonomia - Could be playing role in headaches - Continue to monitor Migraine headaches - On prophylaxis, this headache feels different than typical migraines Hx of headaches - Tension MARTINI with history of occipital nerve injections Elevated BP - Continue to monitor Hypokalemia - Resolved DVT PPX: Lovenox 30 mg QD-patient with hx of surgery in 06/29, decreased mobility with MARTINI, and Autoimmune disease affecting vessels GI ppx: home pantoprazole Diet: regular PCP: CC OOT Code: full Dispo: Admit med obs, expected LOS < 48 hrs Addendum - Attending - Attending Attestation Date/Time: 06/19/20 1123 I personally evaluated the patient and discussed the management with Dr. Garcia. I agree with the History, Examination, Assessment and Plan documented above with any addition or exceptions noted below. Continue rest, IV hydration, and pain control for her post dural puncture spinal headache. No evidence of infectious or inflammatory cause of headache. Neuro on board. Patient has continued to decline repeat evaluation for blood patch.
[2020-06-19] MEDS: Pregabalin 50 MG CAP PO SCH ×2 (09:55→21:19)
[2020-06-19] MEDS: Potassium Chloride 20 MEQ TAB PO SCH ×2 (09:55→21:17)
[2020-06-19] MEDS: Nitrofurantoin Monohyd/M-Cryst 100 MG CAP PO SCH ×2 (09:56→21:19)
[2020-06-19] MEDS: Propranolol 40 MG TAB PO SCH ×2 (09:56→21:22)
[2020-06-19] MEDS: Enoxaparin Sodium 40 MG/0.4 ML SYRINGE SC SCH (09:56)
[2020-06-19] MEDS: Fludrocortisone Acetate 0.1 MG TAB PO SCH ×2 (09:56→21:21)
[2020-06-19] MEDS: Prochlorperazine Edisylate 10 MG in Sodium Chloride 0.9% 50 ML IVPB SCH ×3 (11:45→23:31)
[2020-06-19] MEDS: diphenhydrAMINE 50 MG/ML VIAL IVP SCH ×3 (11:45→23:32)
--- NOTE | 2020-06-19 16:45 | PDOC.NEUPN ---
- Subjective Encounter Date: 06/19/20 Subjective: Patient's headache better at the time. 01/17 which is an improvement since morning. Receiving migraine cocktail . - Objective Vital Signs & Weight: Vital Signs (12 hours) Temp Pulse Resp BP Pulse Ox 06/19/20 07:00 98.1 F 78 14 105/58 L 97 Weight Admit Weight 114 lb 9.6 oz Weight 114 lb 10.246 oz I&O: 06/18/20 06/19/20 06/20/20 06:59 06:59 06:59 Intake Total 4432 2222 Output Total 1 Balance 4432 2221 Result Diagrams: 06/19/20 05:33 06/19/20 05:33 Radiology Reviewed by me: Yes EKG Reviewed by me: Yes ROS - Review of Systems Constitutional: denies: fever, chills, sweats, weakness, malaise, other Eyes: denies: pain, vision change, conjunctivae inflammation, eyelid inflammation, redness, other ENT: denies: ear pain, ear discharge, nose pain, nose discharge, nose congestion, mouth pain, mouth swelling, throat pain, throat swelling, other Respiratory: denies: cough, dry, shortness of breath, hemoptysis, SOB with excertion, pleuritic pain, sputum, wheezing, other Cardiovascular: denies: no pertinent history, AFIB, CAD, CHF, HTN, [place], Syncope, Hyperlipidemia, Mitral valve stenosis, Aortic stenosis, Valve insufficiency, Pulmonary hypertension, Other Gastrointestinal: reports: other (hedache). denies: nausea, vomiting, abdominal pain, diarrhea, constipation, melena, hematochezia Genitourinary: denies: dysuria, frequency, incontinence, hematuria, retention, other Musculoskeletal: denies: neck pain, shoulder pain, arm pain, back pain, hand pain, leg pain, foot pain, other Skin: denies: rash, lesions, candace, bruising, other Neurological: denies: weakness, numbness, incoordination, change in speech, confusion, seizures, other All Systems: All other systems reviewed; all pertinent +/- noted in HPI/Subj - Medication Medications: Active Medications Generic Name Dose Route Start Last Admin Trade Name Freq PRN Reason Stop Dose Admin Acetaminophen 650 mg 06/18/20 02:00 06/19/20 09:55 Acetaminophen 325 Mg Tab PO 650 mg 0200,1000,1800 SHONA Administration Amitriptyline HCl 25 mg 06/16/20 21:00 06/18/20 20:52 Amitriptyline Hcl 25 Mg Tab PO 25 mg HS SHONA Administration Diphenhydramine HCl 25 mg 06/19/20 12:00 06/19/20 11:45 Diphenhydramine 50 Mg/Ml Vial IVP 06/20/20 06:01 25 mg Q6HR SHONA Administration Enoxaparin Sodium 40 mg 06/18/20 09:00 06/19/20 09:56 Enoxaparin Sodium 40 Mg/0.4 Ml Syringe SC Not Given 899 SHONA Fludrocortisone Acetate 0.2 mg 06/15/20 21:00 06/19/20 09:56 Fludrocortisone Acetate 0.1 Mg Tab PO 0.2 mg BID SHONA Administration Hyoscyamine Sulfate 0.125 mg 06/15/20 21:00 06/19/20 09:54 Hyoscyamine Sulfate 0.125 Mg Tab PO 0.125 mg BID SHONA Administration Promethazine HCl 25 mg/ Sodium 51 mls @ 204 mls/hr 06/17/20 23:02 06/17/20 23:30 Chloride IVPB 51 mls Q6H PRN Administration Nausea/Vomiting Dextrose/Lactated Ringer's 1,000 mls @ 125 mls/hr 06/18/20 15:15 06/19/20 14:35 D5 Lr IV 1,000 mls .Q8H SHONA Administration Prochlorperazine Edisylate 10 52 mls @ 150 mls/hr 06/19/20 12:00 06/19/20 11:45 mg/ Sodium Chloride IVPB 06/20/20 06:21 52 mls Q6HR SHONA Administration Nitrofurantoin Macrocrystals 100 mg 06/15/20 21:00 06/19/20 09:56 Nitrofurantoin Monohyd/M-Cryst 100 Mg Cap PO 06/22/20 09:01 100 mg BID SHONA Administration Ondansetron HCl 4 mg 06/15/20 07:52 06/17/20 22:25 Ondansetron Pf 4 Mg/2 Ml Vial IVP 4 mg Q6H PRN Administration Nausea/Vomiting Pantoprazole Sodium 40 mg 06/15/20 21:00 06/19/20 09:56 Pantoprazole 40 Mg Tab PO 40 mg BID SHONA Administration Potassium Chloride 20 meq 06/15/20 21:00 06/19/20 09:55 Potassium Chloride 20 Meq Tab PO 20 meq BID SHONA Administration Pregabalin 100 mg 06/15/20 21:00 06/19/20 09:55 Pregabalin 50 Mg Cap PO 100 mg BID SHONA Administration Propranolol HCl 40 mg 06/15/20 21:00 06/19/20 09:56 Propranolol 40 Mg Tab PO 40 mg BID SHONA Administration - Exam General Appearance: awake alert Eye: PERRL, anicteric sclera ENT: normocephalic atraumatic Neck: supple Respiratory: CTAB Cardiovascular: RRR Gastrointestinal: soft Extremities: no cyanosis Skin: normal turgor Neurological: CN's grossly intact, normal sensation to touch, no weakness, no focal deficits Musculoskeletal: normal tone, normal strength, no muscle wasting PSYCH: normal affect, normal behavior, A&O x 3, oriented to person, oriented to place, oriented to time Results - Labs Result Diagrams: 06/19/20 05:33 06/19/20 05:33 Lab results: WBC 7.5 thou/uL (4.8-10.8) 06/19/20 05:33 Hgb 11.6 g/dL (12.0-16.0) L 06/19/20 05:33 Hct 33.1 % (36.0-47.0) L 06/19/20 05:33 MCV 93.9 fL (78.0-98.0) 06/19/20 05:33 Plt Count 252 thou/uL (130-400) 06/19/20 05:33 Neutrophils % 75.4 % (31.0-61.0) H 06/19/20 05:33 ESR Westergren 8 mm/hr (Less than 20) 06/18/20 12:30 Sodium 140 mmol/L (136-145) 06/19/20 05:33 Potassium 3.5 mmol/L (3.5-5.1) 06/19/20 05:33 Chloride 108 mmol/L (98-107) H 06/19/20 05:33 Carbon Dioxide 24 mmol/L (22-29) 06/19/20 05:33 BUN 7 mg/dL (7.0-18.7) 06/19/20 05:33 Creatinine 0.65 mg/dL (0.6-1.1) 06/19/20 05:33 Glucose 161 mg/dL (70-105) H 06/19/20 05:33 Calcium 8.1 mg/dL (7.8-10.44) 06/19/20 05:33 Total Bilirubin Less than 0.2 mg/dL (0.2-1.2) L 06/19/20 05:33 AST 24 U/L (5-34) 06/19/20 05:33 ALT 45 U/L (8-55) 06/19/20 05:33 Alkaline Phosphatase 101 U/L (40-100) H 06/19/20 05:33 C-Reactive Protein Less than 0.50 mg/dL (= or < 0.5) 06/18/20 16:54 Serum Total Protein 6.0 g/dL (6.0-8.3) 06/19/20 05:33 Albumin 3.6 g/dL (3.5-5.0) 06/19/20 05:33 - EKG Interpretation EKG: NSR - Radiology Interpretation MRI - head Additional Comment: No acute intracranial pathology PN A/P (1) Severe headache Code(s): R51.9 - HEADACHE, UNSPECIFIED Status: Acute (2) Severe headache Code(s): R51.9 - HEADACHE, UNSPECIFIED Status: Acute - Plan Daily Plan: DVT proph w/SCDs 19 year old with severe headache. She had blood patch x 1 with significant improvement followed by recurrence of MARTINI. Favorable respone with migraine cocktail, Toradol, compazine and benadryl IV Q6 hours x 4 scheduled doses. Continue migraine cocktail. Declined blood patch. Neurochecks every 4 hours. 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 Continue home medications. Continue medical management per primary team. Plan discussed with the patient and also with the primary team.
[2020-06-19] MEDS: Amitriptyline HCl 25 MG TAB PO SCH (21:20)
[2020-06-20] MEDS: Acetaminophen 325 MG TAB PO SCH ×2 (03:02→11:15)
[2020-06-20] MEDS: Dextrose 5%-Lactated Ringers 1,000 ML IV SCH ×2 (03:03→10:15)
[2020-06-20] MEDS: Prochlorperazine Edisylate 10 MG in Sodium Chloride 0.9% 50 ML IVPB SCH (05:29)
[2020-06-20] MEDS: diphenhydrAMINE 50 MG/ML VIAL IVP SCH (05:29)
--- NOTE | 2020-06-20 06:25 | PDOC.FM ---
- Subjective Subjective: Patient reports improving MARTINI and symptoms, ready to go home. - Objective Vital Signs & Weight: Vital Signs (12 hours) Temp Pulse Resp BP Pulse Ox 06/20/20 03:00 98.1 F 80 16 115/65 97 06/19/20 21:20 100 06/19/20 19:28 98.2 F 81 20 124/79 100 Weight Admit Weight 51.982 kg Weight 52 kg I&O: 06/18/20 06/19/20 06/20/20 06:59 06:59 06:59 Intake Total 4432 2222 3440 Output Total 1 Balance 4432 2221 3440 Result Diagrams: 06/20/20 05:50 06/20/20 05:50 Phys Exam - Physical Examination Constitutional: NAD Respiratory: no wheezing, no rales, no rhonchi Cardiovascular: RRR, no rub Mid systolic click Gastrointestinal: soft, no distention, positive bowel sounds Musculoskeletal: no edema, pulses present Dx/Plan - Plan Plan: Intractable Headache - ddx includes spinal headache (LP 06/13) vs migraine vs tension vs aneurysm vs parathyroid hyperplasia/adenoma - CTH is unremarkable for acute processes, MRI shows stable pituitary adenoma - MARTINI protocol completed steps 1-4 - Blood patch completed 06/15 - Neuro consulted - Anesthesia consulted - Patient denied blood patch after rediscussion - Fioricet X24 hrs only, completed 06/18 - will reach out to neurology today. 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 POTS disease - MD aware, monitor VS Dysautonomia - Could be playing role in headaches - Continue to monitor Migraine headaches - On prophylaxis, this headache feels different than typical migraines Hx of headaches - Tension MARTINI with history of occipital nerve injections Elevated BP - Continue to monitor Hypokalemia - Resolved DVT PPX: Lovenox 30 mg QD-patient with hx of surgery in 06/29, decreased mobility with MARTINI, and Autoimmune disease affecting vessels GI ppx: home pantoprazole Diet: regular PCP: CC OOT Code: full Dispo: Admitted medicine eLOS < 2 days Addendum - Attending - Attending Attestation Date/Time: 06/20/20 1054 I personally evaluated the patient and discussed the management with Dr. Garcia. I agree with the History, Examination, Assessment and Plan documented above with any addition or exceptions noted below.
[2020-06-20 07:14] LABS: Hemoglobin 11.5 g/dL (12.0-16.0); Mean Corpuscular HGB CONC 34.2 g/dL (32.0-36.0); Mean Corpuscular Hemoglobin 32.4 pg (25.0-35.0); Mean Corpuscular Volume 94.9 fL (78.0-98.0); Mean Platelet Volume 7.6 fL (7.4-10.4); Platelet Count 232 thou/uL (130-400); RBC Distribution Width 11.1 % (11.5-14.5); Red Blood Cell (RBC) Count 3.56 mill/uL (4.00-5.20); White Blood Cell (WBC) Count 5.1 thou/uL (4.8-10.8)
[2020-06-20 07:21] LABS: ALT (SGPT) 71 U/L (8-55); AST (SGOT) 61 U/L (5-34); Albumin 3.4 g/dL (3.5-5.0); Alkaline Phosphatase 98 U/L (40-100); Anion Gap 11 mmol/L (10-20); BUN (Urea Nitrogen) 7 mg/dL (7.0-18.7); Bilirubin, Total Less than 0.2 mg/dL (0.2-1.2); Calc. Creatinine Clearance 121 mL/min (70-130); Calcium 8.2 mg/dL (7.8-10.44); Carbon Dioxide 24 mmol/L (22-29); Chloride 107 mmol/L (98-107); Globulin 2.4 g/dL (2.4-3.5); Glucose 97 mg/dL (70-105); Potassium 3.4 mmol/L (3.5-5.1); Protein, Total 5.8 g/dL (6.0-8.3); Sodium 139 mmol/L (136-145)
[2020-06-20 08:31] LABS: Band 1 % (5-11); Eosinophils 4 % (0-10); Lymphocytes 52 % (28-48); MDiff Complete? YES; Monocytes 12 % (0-4); Neutrophil 31 % (31-61); RBC Morphology Normal
[2020-06-20] MEDS: Fludrocortisone Acetate 0.1 MG TAB PO SCH (08:35)
[2020-06-20] MEDS: Pregabalin 50 MG CAP PO SCH (08:37)
[2020-06-20] MEDS: Propranolol 40 MG TAB PO SCH (08:37)
[2020-06-20] MEDS: Potassium Chloride 20 MEQ TAB PO SCH (08:38)
[2020-06-20] MEDS: Nitrofurantoin Monohyd/M-Cryst 100 MG CAP PO SCH (08:39)
[2020-06-20] MEDS: Enoxaparin Sodium 40 MG/0.4 ML SYRINGE SC SCH (11:16)
--- NOTE | 2020-06-20 14:15 | PDOC.NEUPN ---
- Subjective Encounter Date: 06/20/20 Subjective: Patient is feeling much better. - Objective Vital Signs & Weight: Vital Signs (12 hours) Temp Pulse Resp BP Pulse Ox 06/20/20 08:00 97.9 F 06/20/20 07:18 97.9 F 65 14 106/66 97 06/20/20 03:00 98.1 F 80 16 115/65 97 Weight Admit Weight 114 lb 9.6 oz Weight 114 lb 10.246 oz I&O: 06/19/20 06/20/20 06/21/20 06:59 06:59 06:59 Intake Total 2222 3440 120 Output Total 1 Balance 2221 3440 120 Result Diagrams: 06/20/20 05:50 06/20/20 05:50 Radiology Reviewed by me: Yes EKG Reviewed by me: Yes ROS - Review of Systems Constitutional: denies: fever, chills, sweats, weakness, malaise, other Eyes: denies: pain, vision change, conjunctivae inflammation, eyelid inflammation, redness, other ENT: denies: ear pain, ear discharge, nose pain, nose discharge, nose congestion, mouth pain, mouth swelling, throat pain, throat swelling, other Respiratory: denies: cough, dry, shortness of breath, hemoptysis, SOB with excertion, pleuritic pain, sputum, wheezing, other Cardiovascular: denies: no pertinent history, AFIB, CAD, CHF, HTN, [place], Syncope, Hyperlipidemia, Mitral valve stenosis, Aortic stenosis, Valve insufficiency, Pulmonary hypertension, Other Gastrointestinal: denies: nausea, vomiting, abdominal pain, diarrhea, constipation, melena, hematochezia, other Musculoskeletal: denies: neck pain, shoulder pain, arm pain, back pain, hand pain, leg pain, foot pain, other Skin: denies: rash, lesions, candace, bruising, other Neurological: denies: weakness, numbness, incoordination, change in speech, co nfusion, seizures, other All Systems: All other systems reviewed; all pertinent +/- noted in HPI/Subj - Medication Medications: Active Medications Generic Name Dose Route Start Last Admin Trade Name Freq PRN Reason Stop Dose Admin Acetaminophen 650 mg 06/18/20 02:00 06/20/20 11:15 Acetaminophen 325 Mg Tab PO 650 mg 0200,1000,1800 SHONA Administration Amitriptyline HCl 25 mg 06/16/20 21:00 06/19/20 21:20 Amitriptyline Hcl 25 Mg Tab PO 25 mg HS SHONA Administration Enoxaparin Sodium 40 mg 06/18/20 09:00 06/20/20 11:16 Enoxaparin Sodium 40 Mg/0.4 Ml Syringe SC 40 mg 0900 SHONA Administration Fludrocortisone Acetate 0.2 mg 06/15/20 21:00 06/20/20 08:35 Fludrocortisone Acetate 0.1 Mg Tab PO 0.2 mg BID SHONA Administration Hyoscyamine Sulfate 0.125 mg 06/15/20 21:00 06/20/20 08:36 Hyoscyamine Sulfate 0.125 Mg Tab PO 0.125 mg BID SHONA Administration Promethazine HCl 25 mg/ Sodium 51 mls @ 204 mls/hr 06/17/20 23:02 06/17/20 23:30 Chloride IVPB 51 mls Q6H PRN Administration Nausea/Vomiting Dextrose/Lactated Ringer's 1,000 mls @ 125 mls/hr 06/18/20 15:15 06/20/20 10:15 D5 Lr IV 1,000 mls .Q8H SHONA Administration Nitrofurantoin Macrocrystals 100 mg 06/15/20 21:00 06/20/20 08:39 Nitrofurantoin Monohyd/M-Cryst 100 Mg Cap PO 06/22/20 09:01 100 mg BID SHONA Administration Ondansetron HCl 4 mg 06/15/20 07:52 06/17/20 22:25 Ondansetron Pf 4 Mg/2 Ml Vial IVP 4 mg Q6H PRN Administration Nausea/Vomiting Pantoprazole Sodium 40 mg 06/15/20 21:00 06/20/20 08:39 Pantoprazole 40 Mg Tab PO 40 mg BID SHONA Administration Potassium Chloride 20 meq 06/15/20 21:00 06/20/20 08:38 Potassium Chloride 20 Meq Tab PO 20 meq BID SHONA Administration Pregabalin 100 mg 06/15/20 21:00 06/20/20 08:37 Pregabalin 50 Mg Cap PO 100 mg BID SHONA Administration Propranolol HCl 40 mg 06/15/20 21:00 06/20/20 08:37 Propranolol 40 Mg Tab PO 40 mg BID SHONA Administration - Exam General Appearance: awake alert Eye: PERRL ENT: normocephalic atraumatic Neck: supple Respiratory: CTAB Cardiovascular: RRR Gastrointestinal: soft Extremities: no cyanosis Skin: normal turgor Neurological: CN's grossly intact, normal sensation to touch, no weakness, no focal deficits, no new deficit Musculoskeletal: normal tone, normal strength, no muscle wasting PSYCH: normal affect, normal behavior, A&O x 3, oriented to person, oriented to place, oriented to time Results - Labs Result Diagrams: 06/20/20 05:50 06/20/20 05:50 Lab results: WBC 5.1 thou/uL (4.8-10.8) 06/20/20 05:50 Hgb 11.5 g/dL (12.0-16.0) L 06/20/20 05:50 Hct 33.8 % (36.0-47.0) L 06/20/20 05:50 MCV 94.9 fL (78.0-98.0) 06/20/20 05:50 Plt Count 232 thou/uL (130-400) 06/20/20 05:50 Neutrophils % 75.4 % (31.0-61.0) H 06/19/20 05:33 Band Neuts % (Manual) 1 % (5-11) L 06/20/20 05:50 ESR Westergren 8 mm/hr (Less than 20) 06/18/20 12:30 Sodium 139 mmol/L (136-145) 06/20/20 05:50 Potassium 3.4 mmol/L (3.5-5.1) L 06/20/20 05:50 Chloride 107 mmol/L (98-107) 06/20/20 05:50 Carbon Dioxide 24 mmol/L (22-29) 06/20/20 05:50 BUN 7 mg/dL (7.0-18.7) 06/20/20 05:50 Creatinine 0.61 mg/dL (0.6-1.1) 06/20/20 05:50 Glucose 97 mg/dL (70-105) 06/20/20 05:50 Calcium 8.2 mg/dL (7.8-10.44) 06/20/20 05:50 Total Bilirubin Less than 0.2 mg/dL (0.2-1.2) L 06/20/20 05:50 AST 61 U/L (5-34) H 06/20/20 05:50 ALT 71 U/L (8-55) H 06/20/20 05:50 Alkaline Phosphatase 98 U/L (40-100) 06/20/20 05:50 C-Reactive Protein Less than 0.50 mg/dL (= or < 0.5) 06/18/20 16:54 Serum Total Protein 5.8 g/dL (6.0-8.3) L 06/20/20 05:50 Albumin 3.4 g/dL (3.5-5.0) L 06/20/20 05:50 PN A/P (1) Severe headache Code(s): R51.9 - HEADACHE, UNSPECIFIED Status: Acute (2) Severe headache Code(s): R51.9 - HEADACHE, UNSPECIFIED Status: Acute - Plan 19 year old with severe headache. She had blood patch x 1 with significant improvement followed by recurrence of MARTINI. Favorable respone with migraine cocktail, Toradol, compazine and benadryl IV Q6 hours x 4 scheduled doses. Headache much better. Discharge on oral medications. Declined blood patch. 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 Continue home medications. Continue medical management per primary team. Plan discussed with the patient and also with the primary team.
[2020-06-20 14:47] VITALS: BP 117/73; TEMP 98.3
--- NOTE | 2020-06-22 08:21 | EKG ---
Test Reason : STAT Blood Pressure : / mmHG Vent. Rate : 141 BPM Atrial Rate : 141 BPM P-R Int : 138 ms QRS Dur : 068 ms QT Int : 302 ms P-R-T Axes : 057 089 -48 degrees QTc Int : 462 ms Sinus tachycardia Possible Left atrial enlargement Abnormal ECG No previous ECGs available Confirmed by SELAM WASHINGTON, PRECIOUS ([id number]) on 06/22/2020 8:20:59 AM Referred By: MUKUL ARCHER Confirmed By:PRECIOUS DOSS MD
--- NOTE | 2020-06-25 04:23 | PQF ---
CLINICAL DOCUMENTATION CLARIFICATION FORM: Dear : Sam Arceo Date / Time: 06/25/2020 0422 Please exercise your independent, professional judgment in responding to the clarification form. Clinical indicators are provided on the bottom of this form for your review Please check appropriate box(es): [ ] Protein Calorie Malnutrition: [ ] Mild [ ] Moderate [ ] Severe [ ] Other Malnutrition (please specify) [ ] Underweight without malnutrition [ ] Cachexia [ ] Other diagnosis [ X ] Unable to determine In addition, please specify: Present on Admission (POA): [X ] Yes [ ] No [ ] Unable to determine Physician Signature: Date/Time: For continuity of documentation, please document condition throughout progress notes and discharge summary. Thank You. To be completed by CDI/Coding staff for physician review: Present Clinical Indicators - Signs / Symptoms / Labs Results and Location in Medical Record [X] BP 130/85, Pulse 68, Resp 18, Temp 97.9 Vital signs 06/15 [X] BMI of 16.9 Nutritional assessment Dietitian [facility] 06/16 [X] Poor appetite Nutritional assessment Dietitian [facility] 06/16 [X] Weight loss Nutritional assessment Dietitian [facility] 06/16 [X] Serum Total protein 6.8, Albumin 3.9, Globulin 2.29, Ratio 1.3 Laboratory 06/15 Present Risk Factors Results and Location in Medical Record [X] Behcet Disease H&P p1 06/15 Dr Garcia [X] POTS disease H&P p1 06/15 Dr Garcia [X] Dysautonomia H&P p1 06/15 Dr Garcia [X] Migraine H&P p1 06/15 Dr Garcia Present Treatments Results and Location in Medical Record [X] Dietary consult Nutritional assessment Dietitian [facility] 06/16 [X] Nutritional supplements Nutritional assessment Dietitian [facility] 06/16 [X] Weight monitoring Nutritional assessment Dietitian [facility] 06/16 [X] Oral intake monitoring Nutritional assessment Dietitian [facility] 06/16 [X] Appetite stimulant - medication Nutritional assessment Dietitian [facility] 06/16 CDS/Global Security Architect Signature: Yakelin Apariciovenus Phone #: ext [phone] Date/Time: 06/25/2020 0422 Moderate Malnutrition (in acute illness) ? Energy Intake: <75% of estimated energy requirement for > 7 days ? Weight Loss: 1-2%/1 week; 5%/ 1 month; 7.5%/3 months ? Other: mild body fat loss; mild muscle mass loss; mild fluid accumulation; Severe Malnutrition (in acute illness) ? Energy Intake: ? 50% of estimated energy requirement for ? 5 days ? Weight Loss: >2%/1 week; >5%/1 month; >7.5%/3 months ? Other: moderate body fat loss; moderate muscle mass loss; moderate- severe fluid accumulation; measurably reduced publications production supervisor strength Moderate Malnutrition (in chronic illness) ? Energy Intake: <75% of estimated energy requirement for ?1 month ? Weight Loss: 5%/1 month; 7.5%/3 months; 10%/6 months; 20%/1 year ? Other: mild body fat loss; mild muscle mass loss; mild fluid accumulation Severe Malnutrition (in chronic illness) ? Energy Intake: ?75% of estimated energy requirement for ?1 month ? Weight Loss: >5%/1 month; >7.5%/3 months; >10%/6 months; >20%/1 year ? Other: severe body fat loss; severe muscle mass loss; severe fluid accumulation; measurably reduced publications production supervisor strength This is a permanent part of the Medical Record MTDD
--- NOTE | 2020-06-25 08:19 | DIS ---
DATE OF ADMISSION: 06/18/2020 DATE OF DISCHARGE: 06/20/2020 RESIDENT: Richard Garcia MD ADMITTING ATTENDING: Naveed Wren MD DISCHARGE ATTENDING: Sam Gramajo MD CONSULTATIONS: Anesthesiology on 06/15/2020; Neurology, Dr. Sahu on 06/16/2020. PROCEDURES: The patient had a blood patch performed on 06/15/2020. Procedure provided significant relief of headache for only a few hours. The patient had an MRI of the brain showing stable sized pituitary adenoma. Per outside records that were able to be obtained, the mass is stable at approximately 1 cm in diameter. The patient also had a CT of the head showing no acute intracranial abnormality. PRIMARY DIAGNOSIS: Intractable headache. SECONDARY DIAGNOSES: Crohn disease, Behcet disease, Shanique-Danlos, postural orthostatic tachycardia syndrome, pituitary adenoma, mitral valve prolapse. DISCHARGE MEDICATIONS: 1. Fludrocortisone 0.2 mg p.o. b.i.d. 2. Protonix 40 mg p.o. b.i.d. 3. Propranolol 40 mg p.o. b.i.d. 4. Hyoscyamine 0.125 mg p.o. b.i.d. 5. Lyrica 100 mg p.o. b.i.d. 6. Potassium 20 mEq p.o. b.i.d. 7. Amitriptyline 25 mg p.o. daily. 8. Ajovy 225 mg subcu q.month. 9. Humira 40 mg subcu q.week. 10. Benadryl 25 mg p.o. q.6 hours x2 days. 11. Compazine 10 mg p.o. q.6 hours x2 days. 12. Macrobid 100 mg p.o. b.i.d. x2 days. 13. Tums 500 mg q.4 hours p.r.n. 14. Tylenol 650 mg p.o. q.8 hours p.r.n. DISCONTINUED MEDICATIONS: None. HISTORY OF PRESENT ILLNESS/HOSPITAL COURSE: The patient is a 19-year-old female with significant past medical history for multiple autoimmune diseases including Behcet's and Crohn's. The patient presented to the hospital with headache that had been ongoing for approximately a week and a half. The patient had been to the ER multiple times prior to admission and received a lumbar puncture on 06/13. The patient reports that approximately an hour after the lumbar puncture, her headache was significantly worse. She reports that the headache was worse with positional changes, specifically sitting or standing. The headache was tolerable as long as the patient laid down. The patient also reported bilateral lower extremity weakness that started the day before lumbar puncture. The patient follows with physicians in [place] including primary care doctor, neurologist, urologist, chemist instrumentation, and project buyer. Upon hospital admission, Anesthesia was consulted and blood patch was performed on 06/15. Blood patch reportedly helped the patient for a few hours, then the headache returned to its original severity. Pain control was significantly difficult to achieve. The headache protocol in our hospital was ran through multiple times with minimal relief. Neurology was consulted on 06/16, after failed a blood patch. Repeat blood patch was discussed with the patient multiple times. However, she declined the procedure because she "did not want to get another needle stuck in her back." On day of discharge, the patient reported that headache was improving and that she wanted to go home. The patient has had relief with IV Benadryl and Compazine for the 24 hours prior to discharge. The patient was sent home with oral Benadryl and Compazine for 2 days. Had multiple discussions with the patient that treatment for presumed postdural puncture headache is blood patch but that it is also a self limiting process and should get better over time. DISPOSITION: Stable. DISCHARGE INSTRUCTIONS: 1. Location: Home. 2. Diet: No restrictions, as tolerated. Of note, Speech Therapy recommended the patient undergo modified barium swallow study due to perceived diffuse globus sensation. Recommended the patient follow up with Modified barium swallow outpatient. 3. Activity: As tolerated. 4. Followup: Recommended follow up with primary care physician in 2 weeks. Gave patient resources for local physicians if she would not be able to make it to her home doctor in [place]. Job ID: [id number] [facility]
== END 2020-06-20 15:02 | disposition home or self-care (01) | DRG 103 ==
LOC: ERS 04:39 → T4-B 06:49 → OBSVTOIN 06-18 11:53
PROVIDERS: ADMIT Family Medicine; ATTEND Family Medicine
PROC: 3E0R3GC Introduction of Other Therapeutic Substance into Spinal Canal, Percutaneous Approach (ICD-10-PCS; principal; 2020-06-15)
DX: G97.1 Other reaction to spinal and lumbar puncture (principal); Q79.60 Ehlers-Danlos syndrome, unspecified; M35.2 Behcet's disease; N39.0 Urinary tract infection, site not specified; K50.90 Crohn's disease, unspecified, without complications; G43.909 Migraine, unspecified, not intractable, without status migrainosus; D35.2 Benign neoplasm of pituitary gland; I49.8 Other specified cardiac arrhythmias; R74.01 Elevation of levels of liver transaminase levels; G90.1 Familial dysautonomia [Riley-Day]; M32.9 Systemic lupus erythematosus, unspecified; R03.0 Elevated blood-pressure reading, without diagnosis of hypertension; Y84.4 Aspiration of fluid as the cause of abnormal reaction of the patient, or of later complication, without mention of misadventure at the time of the procedure; Z53.29 Procedure and treatment not carried out because of patient's decision for other reasons; Z88.1 Allergy status to other antibiotic agents; Z88.5 Allergy status to narcotic agent; Z88.8 Allergy status to other drugs, medicaments and biological substances; Z79.899 Other long term (current) drug therapy; Z90.49 Acquired absence of other specified parts of digestive tract
CPT/HCPCS: 36415; 62272; 70450; 70553; 80053; 83735; 84703; 85025; 85652; 86140; 93005; 93010; 96365; 96366; 96367; 96372; 96375; 96376; A9579; G0378; J0706; J0780; J1170; J1200; J1650; J1885; J2405; J2765; J2920; J2930; J3010; J3475; J3490; J7121